=== PATIENT | male | born 1955 | race Caucasian/White ===

== ENCOUNTER 2019-01-02 13:29 | Emergency (ER) | payer OTHER ==
[2019-01-02 13:36] VITALS: BP 139/84
[2019-01-02] MEDS ORDERED: TETANUS/DIPHTHERIA/PERTUSSIS 0.5 ML SYRINGE IM ONE (13:44)
[2019-01-02] MEDS ORDERED: LIDOCAINE 1%-EPI 1:100000 20 ML MDV SUBQ STA (13:45)
[2019-01-02] MEDS ORDERED: LIDOCAINE 1%-EPI 1:100000 20 ML MDV ONE (13:54)
--- NOTE | 2019-01-02 14:10 | ED Physician Documentation ---
PD HPI HEAD INJURY - Stated complaint Stated Complaint: GLF, FACE INJURY - Chief complaint Chief Complaint: Trauma Hd/Nk - History obtained from History obtained from: Patient - History of Present Illness Mechanism of head injury: Blow Where head injury occurred: Home Timing - onset: How many minutes ago (45) Location of injury: Left, Front Associated symptoms: No: LOC, Nausea / vomiting, Neck pain Similar symptoms before: Has not had sx before - Additional information Additional information: The patient is a 63-year-old male who was working on a deck at his home when he slipped off a beam, hitting the left side of his face on a 2 x 4. The incident occurred about 45 minutes prior to arrival. He denies loss of consciousness, headache, neck pain, nausea or vomiting. The date of his last tetanus booster is unknown. He denies any other injuries. Review of Systems Eyes: denies: Decreased vision Ears: denies: Tinnitus/ringing Nose: denies: Congestion Cardiac: denies: Chest pain / pressure Respiratory: denies: Dyspnea, Cough GI: denies: Nausea, Vomiting Skin: reports: Laceration (s) (left face) Musculoskeletal: denies: Neck pain, Extremity pain Neurologic: reports: Head injury. denies: Altered mental status, Headache, LOC PD PAST MEDICAL HISTORY - Past Medical History Cardiovascular: None Neuro: None Endocrine/Autoimmune: None - Past Surgical History Past Surgical History: No - Present Medications Home Medications: Ambulatory Orders Medication Instructions Recorded Confirmed No Known Home Medications 01/02/19 01/02/19 - Allergies Allergies/Adverse Reactions: Allergies Allergy/AdvReac Type Severity Reaction Status Date / Time No Known Drug Allergies Allergy Verified 01/02/19 13:36 - Social History Does the pt smoke?: No Smoking Status: Never smoker Does the pt drink ETOH?: Yes Does the pt have substance abuse?: No - Immunizations Immunizations are current?: No Immunizations: TDAP >10years/unknown PD ED PE NORMAL - Vitals Vital signs reviewed: Yes (borderline hypertension) - General General: Alert and oriented X 3, Well developed/nourished - HEENT HEENT: PERRL, EOMI, Pharynx benign, Other (There is a 1.5 cm laceration in on the left eyebrow, and a 1.5 cm laceration at the left infraorbital rim. Pupils are equal round reactive to light, extraocular movements intact. No bony step- off palpated.) - Neck Neck: No bony TTP, Other (Full cervical range of motion without tenderness.) - Cardiac Cardiac: RRR - Respiratory Respiratory: No respiratory distress - Derm Derm: No rash - Extremities Extremities: No tenderness to palpate, Normal ROM s pain - Neuro Neuro: Alert and oriented X 3, No motor deficit, No sensory deficit Results - Vitals Vitals: Vital Signs - 24 hr 01/02/19 13:34 Temperature 36.2 C L Heart Rate 58 L Respiratory 16 Rate Blood Pressure 139/84 H O2 Saturation 97 Oxygen O2 Source Room air Procedures - Laceration (location) left eyebrow Length in cm: 1.5 Wound type: Linear, Clean Neurovascular status: Vascular intact Anesthesia: Lidocaine 1% with epi Wound Preparation: Hibiclens, Irrigated copiously NS, Wound explored, To the base. No: FB identified Skin layer closure: Nylon, Size #-0 - enter number (5), Sutures - enter # (3) Other: Patient tolerated well, No complications, Neurovascular intact, Tetanus booster given Complexity: Simple left infraorbital rim Length in cm: 1.5 Wound type: Irregular Neurovascular status: Sensory intact, Vascular intact Anesthesia: Lidocaine 1% with epi Wound Preparation: Hibiclens, Wound explored, To the base. No: FB identified Skin layer closure: Nylon, Interrupted, Size #-0 - enter number (5), Sutures - enter # (4) Other: Patient tolerated well, No complications, Neurovascular intact, Dressing applied, Tetanus booster given Complexity: Simple PD MEDICAL DECISION MAKING - ED course Complexity details: considered differential, d/w patient, d/w family ED course: Patient's presentation is significant for 2 facial lacerations caused by falling off a beam and hitting his face against a 2 x 4. No other injuries are detected. There is no clinical indication for imaging studies. Treatment in the emergency department included repair of the lacerations after administering local lidocaine anesthetic and thorough cleaning of the wound. Tetanus booster was administered. I discussed with the patient and his the expected course of healing, timing for suture removal, as well as potentially worrisome signs or symptoms that should prompt reevaluation in the emergency department. Departure - Departure Disposition: 01 Home, Self Care Clinical Impression: Face lacerations Qualifiers: Encounter type: initial encounter Qualified Code(s): S01.81XA - Laceration without foreign body of other part of head, initial encounter Condition: Stable Instructions: ED Laceration Facial Sutr Tape Comments: Apply antibiotic ointment to the wounds daily. Follow-up for suture removal in 8 to 10 days. Return to the emergency department sooner if you develop any sign of infection, or otherwise worsening symptoms. Discharge Date/Time: 01/02/19 14:47
== END 2019-01-02 14:47 | disposition home or self-care (01) ==
LOC: ED 13:29
DX: S01.112A Laceration without foreign body of left eyelid and periocular area, initial encounter (principal); S01.81XA Laceration without foreign body of other part of head, initial encounter; W01.198A Fall on same level from slipping, tripping and stumbling with subsequent striking against other object, initial encounter; Y93.H3 Activity, building and construction; Y92.008 Other place in unspecified non-institutional (private) residence as the place of occurrence of the external cause; Z23 Encounter for immunization
CPT/HCPCS: 12011; 90471